=== PATIENT | female | born 1985 | race Caucasian/White ===

== ENCOUNTER 2023-06-12 11:10 | Outpatient (AMB) | payer OTHER, SELFPAY ==
--- NOTE | 2023-06-12 11:22 | A.OFFPC_ITS ---
Vital Signs 06/12/23 11:24 Height 5 ft 5 in Weight 150 lb BMI 25.0 BP 112/66 Blood Pressure Location Lt brachial Position Sitting Respiration 12 Pulse 81 Pulse Source Pulse Oximeter Temp 97.6 F Temp Source Temporal Artery Scan Pulse Oximetry (%) 99 Oxygen Delivery Method Room Air Intake Visit Reasons: New patient-discuss OBGYN referral Breakdown Man Required: No Accompanied by: Self / Same As Patient Allergies No Known Allergies Allergy (Verified 06/12/23 11:46) Medication List - Last Reconciled 06/12/23 by Himanshu Dorsey CNP vit no.[id number] 28 mg iron- 800 mcg (Classic ) tabs PO DAILY Tobacco use date assessed: 06/12/23 Dental Screening Dental Screen Date: 06/12/23 Did you have a dental visit in the last 12 months?: Yes Did you have a dental problem in the last 6 months where you did not have access to dental care?: No Was dental information given to patient?: Patient has dentist HPI HPI Comments History of Present Illness Details 37-year-old female presents to [facility]. She notes she relocated to [facility] from [place] in November. She is from [place]. Her is in the and they were stationed in [place] before [place]. She notes she was last evaluated by and had a completed by her PROBATION COUNSELOR specialist last June. She states she has not had routine blood work done in a while. She denies significant past medical history. She is currently on vitamins. She notes she has 8 children with vaginal delivery and is currently , possibly 14 weeks. She has not had a visit for her current and requests a referral to PROBATION COUNSELOR. She intends to continue to have children until my body tells me it is not physically ready. She denies history of complications or abortions. She offers no complaints and denies acute symptoms. She notes that her last pap smear test was in June,: normal. [facility] Medical History (Updated 06/12/23 @ 12:15 by Himanshu Dorsey CNP) No pertinent past medical history Surgical History (Updated 06/12/23 @ 11:31 by Jessica Millan MA) No pertinent past surgical history Family History (Updated 06/12/23 @ 11:33 by Jessica Millan MA) Paternal Grandfather Diabetes Social History Housing: House Patient Tobacco Use Status: Never used Tobacco e-Cigarette/Vaping Use: Never Used service: No Current occupational status: unemployed Cognitive needs: No Hearing needs: No Vision needs: No Questionnaire PHQ-9 Over the last 2 weeks, how often have you been bothered by any of the following problems? 1. Little interest or pleasure in doing things: not at all 2. Feeling down, depressed, or hopeless: not at all 3. Trouble falling or staying asleep, or sleeping too much: not at all 4. Feeling tired or having little energy: not at all 5. Poor appetite or overeating: not at all 6. Feeling bad about yourself - or that you are a failure or have let yourself or your family down: not at all 7. Trouble concentrating on things, such as reading the newspaper or watching television: not at all 8. Moving or speaking so slowly that other people could have noticed. Or the opposite - being so fidgety or restless that you have been moving around a lot more than usual: not at all 9. Thoughts that you would be better off or of hurting yourself in some way: not at all Total score: 0 Depression Screening Interpretation: Negative Source: Developed by Drs. Bello Schroeder, Lety Linder, Cordell Roberto and colleagues, with an educational leanna from [employer]. Thrive Questionnaire Date Thrive assessed: 06/12/23 I am a: Patient What is your living situation today?: I have a steady place to live Within the past 12 months, did the food you bought not last and you didn't have the money to get more?: Never true Within the past 12 months, did you worry whether your food would run out before you got money to buy more?: Never true Do you have trouble paying for medicines?: No Do you have trouble getting transportation to medical appointments?: No Do you have trouble paying your heating and electricity bill?: No Do you have trouble taking care of your child, family member or friend?: No Do you have trouble with day-to-day activities such as bathing, preparing meals, shopping, managing finances, etc.?: No Are you currently unemployed and looking for a job?: No Are you interested in more education?: No Please select the resources that you would like help with: None Currently or been in a relationship where the following occur: no concerns reported AUDIT C Alcohol Use Questionnaire (AUDIT-C) 1. How often do you have a drink containing alcohol?: Never 3. How often do you have six or more drinks on one occasion?: Never Total Score: 0 GREER-7 AMB Questionnaire GREER-7 Date GREER - 7 assessed: 06/12/23 Feeling nervous, anxious, or on edge: 0 = Not at all Not being able to stop or control worryin = Not at all Worrying too much about different things: 0 = Not at all Trouble relaxin = Not at all Being so restless that it is hard to sit still: 0 = Not at all Becoming easily annoyed or irritable: 0 = Not at all Feeling afraid as if something awful might happen: 0 = Not at all Total GREER-7 score (0-4 normal; 5-9 mild; 10-14 moderate; 15-21 severe): 0 Source: Developed by Drs. Bello Schroeder, Lety Linder, Cordell Roberto and colleagues, with an educational leanna from [employer]. Review of Systems Const Details: Denies chills, Denies fatigue, Denies fever(s), Denies headache(s) and Denies weakness HEENT Denies change in vision, Denies dizziness, Denies headache(s), Denies hearing loss, Denies nasal congestion, Denies sinus pain, Denies sinus pressure and Denies sore throat Card Denies chest pain, Denies lightheadedness, Denies dyspnea and Denies other (palpitations) Resp Denies cough, Denies dyspnea and Denies wheezing GI Denies abdominal pain, Denies melena, Denies hematochezia, Denies change in bowel habits, Denies dyspepsia and Denies nausea Denies hematuria and Denies dysuria Musc Denies abnormal gait, Denies myalgias, Denies arthralgias, Denies numbness and Denies tingling Skin/Breast Denies rash, Denies unusual bruising and Denies wounds Neuro Denies abnormal gait, Denies dizziness, Denies headache(s), Denies memory loss, Denies numbness, Denies Sensory deficit (Neuro), Denies tingling and Denies weakness Psych Denies anxiety, Denies depression and Denies memory loss Endo Denies cold intolerance, Denies fatigue, Denies heat intolerance, Denies polydipsia and Denies polyuria Arnoldo/Lymph Denies easy bleeding and Denies easy bruising Aller/Immun Denies wheezing Physical exam (Primary Care) Vital Signs: Last Vital Signs Temp 97.6 F 06/12/23 11:24 Pulse 81 06/12/23 11:24 Resp 12 06/12/23 11:24 BP 112/66 06/12/23 11:24 Pulse Ox 99 06/12/23 11:24 Oxygen Delivery Method Room Air 06/12/23 11:24 BMI result Body Mass Index 25.0 Tobacco/Smoking Status: Tobacco use Status Tobacco use date assessed 06/12/23 06/12/23 11:34 Patient Tobacco Use Status Never used Tobacco 06/12/23 11:34 e-Cigarette/Vaping Use Never Used 06/12/23 11:34 PHQ-9: PHQ-9 Score PHQ-9: Total score 0 06/12/23 11:34 Depression Screening Interpretation: Negative Thrive Assessment: Date of Thrive Assessment Date Thrive assessed 06/12/23 06/12/23 11:34 Currently or been in a relationship where the following occur: no concerns r eported Const Other: General: no acute distress, well developed, alert and awake Nutritional Appearance: well nourished Orientation/consciousness: patient oriented x3 HENMT Head: Yes normocephalic and Yes atraumatic Ears: hearing grossly normal bilaterally and TM's normal bilaterally General nose exam: Normal external nose present and Normal nares present Mouth: Normal oral and palatal mucosa present and moist mucous membranes Teeth and gingiva: dentition normal Throat: Yes oropharynx normal Eyes Pupils: Equal, round and reactive pupils present and Pupil accommodation reflex normal EOM: EOMs intact bilaterally Neck Neck: Yes normal visual inspection, Yes no lymphadenopathy and Yes trachea midline Thyroid: Thyroid normal Carotids: no bruits Lymphatic: no lymphadenopathy noted Chest Chest palpation & inspection: normal inspection of the chest Resp Effort & Inspection: normal respiratory effort Auscultation: clear to auscultation bilaterally Cardio Rate: regular rate Rhythm: regular rhythm Heart sounds: S1 normal heart sound present, S2 normal heart sound present, no gallops, no murmurs and no rubs Bruits: no abdominal aortic bruits and no carotid bruits GI Palpation (GI): No Abdominal aortic bruit present, Soft to palpation, nontender, No hepatosplenomegaly present and No Rebound tenderness present Auscultation: normal bowel sounds General: Yes no CVA tenderness Back/Spine/Pelvis Back: no CVA tenderness Cervical Spine: cervical ROM normal and No Cervical spine tenderness Thoracic/Lumbar Spine: thoraco-lumbar ROM normal, No pain with thoraco-lumbar ROM, No thoracic spinal tenderness and No lumbar spinal tenderness Skin General: warm and dry. Normal skin color. Normal skin turgor Lesions: no lesions Rashes: no rashes Trauma: no lacerations or abrasions Wounds: no wounds Nails: normal Neuro General: patient oriented x3, gait normal and CN's II-XI intact bilaterally Cranial nerves: Yes Equal, round and reactive pupils present Cognition (Neuro): normal cognition Gait exam (Neuro): Normal gait present Motor exam (neuro): 5/5 motor strength present throughout Sensory Exam: No Sensory deficit (Neuro) Deep tendon reflexes (DTR's): Right patellar reflex intensity grade: 2+ and Left patellar reflex intensity grade: 2+ Extrem General: Yes normal to inspection, No edema and No calf tenderness Psych Appearance: grossly normal Affect: normal affect Attitude: cooperative Thought process: Normal thought process present Assessment and Plan Assessment & Plan (1) Normal physical examination, routine: Code(s): Z00.00 - Encounter for general adult medical examination without abnormal findings Plan: No significant physical restrictions or limitations noted Advised to fast for at least 10-12 hours with and get routine blood work done Schedule a telehealth visit for lab reviews in 2 to 4 weeks Return sooner with symptoms or concerns Verbalized understanding and agreed with treatment plan. (2) : Code(s): Z34.90 - Encounter for supervision of normal , unspecified, unspecified trimester Qualifiers: Weeks of gestation: 14 weeks Qualified Code(s): Z3A.14 - 14 weeks gestation of Plan: She notes she has 8 children and is currently , possibly 14 weeks. She has not had a visit for her current and requests a referral to PROBATION COUNSELOR. No symptoms or concerns. Referred to [facility] boiler repairman (3) Laboratory tests ordered as part of a complete physical exam (CPE): Code(s): Z00.00 - Encounter for general adult medical examination without abnormal findings Plan: Fasting labs ordered as part of a complete physical exam. Advised to fast for at least 10 hours before getting labs drawn. May drink water Verbalized understanding and agreed with treatment plan. Orders: Orders TSH reflex Free T4 Today Z00.00 - Encounter for general adult medical examination without abnormal findings UA CC w/rflx Micro + Cult Today Z00.00 - Encounter for general adult medical examination without abnormal findings Complete Blood Count Auto Diff Today Z00.00 - Encounter for general adult medical examination without abnormal findings Comprehensive [place]. Panel Fast Today Z00.00 - Encounter for general adult medical examination without abnormal findings Lipid Panel Today Z00.00 - Encounter for general adult medical examination without abnormal findings Referrals PROBATION COUNSELOR Referral Z34.90 - Encounter for supervision of normal , unspecified, unspecified trimester Coding Level of Care Code New Pt Prev Care 18-39yr([id number] Diagnoses Normal physical examination, routine Z00.00 14 weeks gestation of Z3A.14 Weeks of gestation: 14 weeks Laboratory tests ordered as part of a complete physical exam (CPE) Z00.00
[2023-06-12 11:24] VITALS: BP 112/66; PULSE 81; RESP 12; TEMP 36.4; O2SAT 99; BMI 25.0
== END 2023-06-12 12:15 | disposition home or self-care (01) ==
PROVIDERS: PCP Nurse Practitioner Family; Visit Provider Nurse Practitioner Family
DX: Z00.00 Encounter for general adult medical examination without abnormal findings (principal); Z3A.14 14 weeks gestation of pregnancy
CPT/HCPCS: 99385

== ENCOUNTER 2023-06-13 07:13 | Outpatient (REF) | payer OTHER, SELFPAY ==
[2023-06-13 12:01] LABS: Appearance Urine Clear; Color Urine Yellow; Glucose Urine UA Negative (Negative); Leukocyte Esterase Urine Negative (Negative); Nitrite Urine Negative (Negative); PH 6.5 (5.0-9.0); Urine Blood Negative (Negative); Urine Ketones Negative (Negative); Urine Protein Negative (Neg-Trace)
[2023-06-13 12:13] LABS: MANUAL DIFF FLAG NO
[2023-06-13 12:16] LABS: Basophils Percent Auto 0.4 % (0-2); Eosinophils Percent Auto 0.6 % (0-4); Hematocrit 34.5 % (37.0-47.0); Hemoglobin 11.8 g/dl (12.0-16.0); Imm Gran Abs Auto 0.01 X10*3/uL (0.00-0.03); Imm Gran Pct Auto 0.1 % (0.0-0.4); Lymphocytes Absolute Auto 1.9 X10*3/uL (1.2-4.9); Mean Corpuscular HGB Conc 34.2 g/dl (31.0-35.0); Mean Corpuscular Hemoglobin 30.9 pg (27.0-33.0); Mean Corpuscular Volume 90.3 fL (80.0-98.0); Mean Platelet Volume 11.7 fL (9.4-12.3); Monocytes Absolute Auto 0.4 X10*3/uL (0.1-1.2); Monocytes Percent Auto 5.7 % (2-11); Neutrophils Absolute Auto 4.4 x10*3/uL (2.0-8.3); Neutrophils Percent Auto 65.2 % (45-73); Platelet Count 200 X10*3/uL (160-400); Red Blood Count 3.82 X10*6/uL (4.20-5.50); Red Cell Distribution Width 12.7 % (11.0-16.0); White Blood Count 6.7 X10*3/uL (4.8-10.8)
[2023-06-13 13:06] LABS: Alanine Aminotransferase 5 U/L (0-31); Albumin Level 3.8 g/dL (3.5-5.0); Alkaline Phosphatase 52 U/L (39-117); Anion Gap 10 (12-20); Aspartate Amino Transferase 15 U/L (5-31); Bilirubin Total 0.3 mg/dL (0.0-1.0); Blood Urea Nitrogen 8 mg/dL (9-16); Calcium 8.9 mg/dL (8.4-10.2); Carbon Dioxide 22 mmol/L (22-29); Chloride 106 mmol/L (96-108); Cholesterol 166 mg/dL (<200); Estimated Glomerular Filt Rate > 60; Glucose Fasting 78 mg/dL (60-99); HDL Cholesterol 74 mg/dL (>40); LDL Cholesterol Calculated 75 mg/dL (<100); Potassium 3.7 mmol/L (3.3-5.1); Sodium 134 mmol/L (135-145); Total Protein 6.6 g/dL (6.5-8.0); Triglycerides 85 mg/dL (<150)
[2023-06-13 13:13] LABS: TSH reflex Free T4 1.16 uIU/mL (0.32-4.0)
== END 2023-06-13 07:14 | disposition home or self-care (01) ==
LOC: HO.HMGCLDS 07:13
PROVIDERS: PCP Nurse Practitioner Family; Visit Provider Nurse Practitioner Family
DX: Z00.00 Encounter for general adult medical examination without abnormal findings (principal)
CPT/HCPCS: 36415; 80053; 80061; 81003; 84443; 85025

== ENCOUNTER 2023-06-15 07:50 | Outpatient (REF) | payer OTHER, SELFPAY ==
[2023-06-15 12:03] LABS: Iron 89 mcg/dL (30-160); Percent Iron Saturation 22 % (15-50); Total Iron Binding Capacity 396 mcg/dL (228-428); Unsaturated Iron Binding 307 ug/dL
[2023-06-15 12:37] LABS: Folate 14.6 ng/mL (> or = 4.0); Vitamin B12 476 pg/mL (200-900)
== END 2023-06-15 07:51 | disposition home or self-care (01) ==
LOC: HO.HMGCLDS 07:50
PROVIDERS: PCP Nurse Practitioner Family; Visit Provider Nurse Practitioner Family
DX: D64.9 Anemia, unspecified (principal)
CPT/HCPCS: 36415; 82607; 82746; 83540

== ENCOUNTER 2023-07-03 17:01 | Outpatient (AMB) | payer OTHER, SELFPAY ==
--- NOTE | 2023-07-03 15:20 | MHC.PC.OV ---
Intake Visit Reasons: labs review Butadiene Converter Helper Required: No Accompanied by: Self / Same As Patient Allergies No Known Allergies Allergy (Verified 07/03/23 15:21) Tobacco use date assessed: 06/12/23 HPI HPI Comments History of Present Illness Details This is a telephonic telehealth visit for review of recent blood work. Patient established care 3 weeks ago. She was 14 weeks with without complications. Routine labs were ordered. She was referred to [facility] production superintendent hydro. She notes that she has been following up with [facility] OBGYN. She offers no complaints and denies acute symptoms. [facility] Medical History (Updated 07/03/23 @ 15:55 by Himanshu Dorsey CNP) No pertinent past medical history Surgical History (Updated 06/12/23 @ 11:31 by Jessica Millan MA) No pertinent past surgical history Family History (Updated 06/12/23 @ 11:33 by Jessica Millan MA) Paternal Grandfather Diabetes Social History Housing: House Patient Tobacco Use Status: Never used Tobacco e-Cigarette/Vaping Use: Never Used service: No Current occupational status: unemployed Cognitive needs: No Hearing needs: No Vision needs: No Questionnaire Thrive Questionnaire Date Thrive assessed: 06/12/23 GREER-7 AMB Questionnaire GREER-7 Date GREER - 7 assessed: 06/12/23 Source: Developed by Drs. Bello Schroeder, Lety Linder, Cordell Roberto and colleagues, with an educational leanna from [email or web address]. Review of Systems Const Details: Const Denies chills, Denies fatigue, Denies fever(s), Denies headache(s) and Denies weakness ENT Denies dizziness and Denies headache(s) Card Denies chest pain, Denies lightheadedness, Denies dyspnea and Denies other (Palpitations) Resp Denies cough, Denies dyspnea, Denies wheezing and Denies other ( shortness of breath) GI Denies abdominal pain, Denies melena, Denies hematochezia, Denies change in bowel habits, Denies dyspepsia and Denies nausea Denies hematuria and Denies dysuria Musc Denies abnormal gait, Denies myalgias, Denies arthralgias, Denies numbness and Denies tingling Skin/Breast Denies rash, Denies unusual bruising and Denies wounds Neuro Denies abnormal gait, Denies dizziness, Denies headache(s), Denies memory loss, Denies numbness, Denies Sensory deficit (Neuro), Denies tingling and Denies weakness Psych Denies anxiety, Denies depression, Denies memory loss Endo Denies cold intolerance, Denies fatigue, Denies heat intolerance, Denies polydipsia and Denies polyuria Aller/Immun Denies wheezing Physical exam (Primary Care) Tobacco/Smoking Status: Tobacco use Status Tobacco use date assessed 06/12/23 07/03/23 15:22 Patient Tobacco Use Status Never used Tobacco 07/03/23 15:22 e-Cigarette/Vaping Use Never Used 07/03/23 15:22 Thrive Assessment: Date of Thrive Assessment Date Thrive assessed 06/12/23 07/03/23 15:22 Const Other: Telemedicine visit. No physical exam. Telehealth Telehealth Location of provider rendering services: practice address Location of patient: address on file Patient Identification confirmed using: Name, : Yes Telehealth method: voice only Patient verbally consented to treatment: Yes Patient verbally consented to billing insurance company: Yes Patient informed of any privacy concerns related to visit: Yes Assessment and Plan Assessment & Plan (1) Low hemoglobin and low hematocrit: Code(s): D64.9 - Anemia, unspecified Plan: Recent lab results reviewed with the patient. H&H levels were slightly low. Normal iron, vitamin B12, and folate levels. Unrelated to anemia. H&H slightly decreased due to . Adequate hydration encouraged. Continue follow-up with dust collector operator as planned. Advised to discuss lab results with her OBGYN provider Advised to schedule her physical exam for next year and to return sooner with symptoms or concerns Verbalized understanding and agreed with treatment plan. (2) Hyponatremia: Code(s): E87.1 - Hypo-osmolality and hyponatremia Plan: Recent sodium level is slightly low, 134. Patient instructed on the importance of having normal electrolytes levels especially during Advised to discuss lab result with her OBGYN provider. PCP would repeat sodium level if it is not currently being monitored by floor mechanic Verbalized understanding and agreed with treatment plan. Coding Level of Care Code Tele Est Pt Level 2 (13705) Diagnoses Low hemoglobin and low hematocrit D64.9 Hyponatremia E87.1 Time Spent (min) 15
== END 2023-07-03 17:15 ==
PROVIDERS: PCP Nurse Practitioner Family; Visit Provider Nurse Practitioner Family
DX: D64.9 Anemia, unspecified (principal); E87.1 Hypo-osmolality and hyponatremia
CPT/HCPCS: 99213